=== PATIENT | female | born 1960 | race Caucasian/White ===

== ENCOUNTER → 2017-06-23 | Outpatient (CLI) | payer OTHER ==
[~2017-06-23] MED LIST: LIDODERM 5% P1 PATCH TD
== END | disposition home or self-care (01) ==
LOC: NUC 08:06
DX: E11.43 Type 2 diabetes mellitus with diabetic autonomic (poly)neuropathy (principal); E11.65 Type 2 diabetes mellitus with hyperglycemia; K31.84 Gastroparesis; R63.4 Abnormal weight loss
CPT/HCPCS: 78264; A9541